=== PATIENT | male | born 1945 | race Caucasian/White ===

== ENCOUNTER → 2023-04-10 10:44 | Outpatient (CLI) | payer MEDICARE, OTHER, SELFPAY ==
--- NOTE | 2023-04-10 10:51 | DI.CT.S_ITS ---
PROCEDURE: CT FACIAL BONES W CON INDICATIONS: Right sided nasal mass TECHNIQUE: After the administration of intravenous contrast, 2.5 mm axial sections acquired from the mid-neck to the frontal sinuses, with coronal and sagittal reformats. For radiation dose reduction, the following was used: automated exposure control, adjustment of mA and/or kV according to patient size. COMPARISON: None. FINDINGS: Image quality: There is artifact associated with the metallic hardware. Artifact from the metallic hardware is reduced by metal reconstruction algorithm. Soft tissues: Along the right-side of the nose and involving the medial inferior aspect of the right orbit, there is a mildly rim enhancing mass seen that involves the nasolacrimal duct and measures 2.1 cm in greatest axial dimension. Vascular: Visualized vascular structures appear patent throughout. Bony vascular foramina and canals appear normal. Bones: Facial bones appear intact, without fractures, erosions, or destruction. Visualized portions of the skull base and auditory canals also appear normal. Sinuses: There is moderate mucosal thickening within the right maxillary sinus, with milder mucosal thickening seen elsewhere within the paranasal sinuses. No abnormal fluid is seen within the mastoid air cells. IMPRESSION: Right-sided dacrocystocele. Dictated by: Nam Velázquez M.D. on 04/10/2023 at 12:28 Approved by: Nam Velázquez M.D. on 04/10/2023 at 12:31
[2023-04-10 11:40] LABS: Estimated Glomerular Filt Rate > 60 mL/min (>60)
== END ==
PROVIDERS: Radiology Diagnostic Radiology; Referring Provider Otolaryngology; Visit Provider Otolaryngology
DX: H04.69 Other changes of lacrimal passages (principal); R22.0 Localized swelling, mass and lump, head
CPT/HCPCS: 36415; 70487; 82565; Q9967